=== PATIENT | female | born 1945 | race Caucasian/White ===

== ENCOUNTER 2020-08-17 10:15 | Emergency (ER) | payer MEDICARE, BC ==
[~2020-08-17] VITALS: Ht 157.5 cm; Wt 70.8 kg
[2020-08-17 10:24] VITALS: BP 141/82
--- NOTE | 2020-08-17 10:52 | NUR ---
PT IS A 74F COMPLAINING OF SIMON AND SWELLING OF AN ABSCESS ON HER BACK THAT HAS BEEN THERE FOR A WHILE. IT GETS INFLAMED AND THEN CALMS DOWN BUT IS NOW INFLAMED AND PAINFUL. PROVIDER AT BEDSIDE FOR EVAL AND POC. CALL LIGHT WITHIN REACH.
[2020-08-17] MEDS ORDERED: VALS40TA2 PO (10:56)
--- NOTE | 2020-08-17 11:05 | NUR ---
PROVIDER AT BEDSIDE FOR I&D
== END 2020-08-17 11:21 | disposition home or self-care (01) ==
LOC: ED 11:00
DX: L72.3 Sebaceous cyst (principal); I10 Essential (primary) hypertension; Z90.89 Acquired absence of other organs; Z90.710 Acquired absence of both cervix and uterus; Z79.899 Other long term (current) drug therapy
CPT/HCPCS: 10060; 99283

== ENCOUNTER → 2021-01-03 | Outpatient (CLI) | payer MEDICARE, BC ==
[~2021-01-03] MED LIST: VALS40TA2 PO
== END | disposition home or self-care (01) ==
LOC: CFH 08:22
PROVIDERS: ATTEND Family Medicine
DX: M85.80 Other specified disorders of bone density and structure, unspecified site (principal); N95.9 Unspecified menopausal and perimenopausal disorder
CPT/HCPCS: 77080